=== PATIENT | male | born 1970 | race Caucasian/White ===

== ENCOUNTER 2017-04-18 13:41 | Emergency (ER) | payer SELFPAY ==
[~2017-04-18 13:41] MED LIST: CLIN1CAP5 PO; NAPR500 PO; PERC5TAB12 PO
[2017-04-18 13:42] VITALS: BP 148/85; PULSE 52; RESP 15; TEMP 98.3; O2SAT 98
--- NOTE | 2017-04-18 14:01 | PD ---
Physical Exam Time Seen by Provider: 13:59 Narrative 46 y/o male presents for evaluation of L inguinal pain associated with a hernia. Hernia for one year, became enlarged today while lifting blocks of concrete at work. Vital signs reviewed. Seen at triage desk. Awaiting bed placement. Data Data Last Documented VS Vital Signs Date Time Temp Pulse Resp B/P Pulse Ox O2 Delivery O2 Flow Rate FiO2 04/18/17 13:42 98.3 52 15 148/85 98 MDM Medical Record Reviewed: Yes Supervised Visit with RAFIQ: Nish William Apr 18, 2017 14:01
--- NOTE | 2017-04-18 16:36 | PD ---
HPI Chief Complaint: Lump, Cyst, Hernia Time Seen by Provider: 16:26 Travel History International Travel<30 days: No Contact w/Intl Traveler<30days: No Traveled to known affect area: No History of Present Illness HPI This is a 46-year-old male who presents to the emergency department having been lifting concrete blocks at work when his left inguinal hernia came out. He says it's protruding more than it usually does. He says it goes back in when he lays down but immediately comes back out when he stands up. He denies any associated fevers, chills, vomiting or constipation. He has a little bit of abdominal discomfort in the right lower abdomen. He's had this hernia for a year but it got worse today. He has no insurance. PFS Social History Alcohol Use: Yes (OCC) Tobacco Use: Yes (1 PPD) Substance Use: No Allergies-Medications (Allergen,Severity, Reaction): Coded Allergies: No Known Allergies (Verified , 04/18/17) Reported Meds & Prescriptions Reported Meds & Active Scripts Active Percocet 5-325 mg (Oxycodone/Acetaminophen) 1 Tab 1 Tab PO Q6H PRN Naprosyn (Naproxen) 500 Mg Tab 500 Mg PO Q12HR PRN Clindamycin Hcl (Clindamycin HCl) 150 Mg Cap 150 Mg PO Q6H 10 Days Review of Systems Except as stated in HPI: all other systems reviewed are Neg Physical Exam Narrative GENERAL:Well appearing, no acute distress SKIN: Focused skin assessment warm and dry. HEAD: Atraumatic. Normocephalic. EYES: Pupils equal and round. No injection or drainage. ENT: Moist mucous membranes NECK: Trachea midline. CARDIOVASCULAR: Regular rate and rhythm. No murmur appreciated. RESPIRATORY: Clear to auscultation. Breath sounds equal bilaterally. GASTROINTESTINAL: Abdomen soft, non-tender. Easily reducible hernia in the left inguinal canal with no evidence of incarceration MUSCULOSKELETAL: No obvious deformities. NEUROLOGICAL: Awake and alert. No obvious cranial nerve deficits. Moving all extremities. PSYCHIATRIC: Appropriate mood and affect; insight and judgment normal. Data Data Last Documented VS Vital Signs Date Time Temp Pulse Resp B/P Pulse Ox O2 Delivery O2 Flow Rate FiO2 04/18/17 13:42 98.3 52 15 148/85 98 MDM Medical Decision Making Medical Screen Exam Complete: Yes Emergency Medical Condition: Yes Interpretation(s) Afebrile, rate of cardiac, mild hypertension Differential Diagnosis Inguinal hernia, bowel obstruction, incarcerated hernia, strangulated hernia Narrative Course This is a 46-year-old male who presents to the emergency department with an increasingly symptomatic left inguinal hernia. It's easily reducible on exam. He has no evidence of bowel obstruction. Patient will be discharged home. He was given pain control, a prescription for hernia belt and a referral to general surgery and the [facility]. Diagnosis Primary Impression: Inguinal hernia Qualified Code: K40.91 - Unilateral recurrent inguinal hernia without obstruction or gangrene Referrals: [facility] Patient Instructions: General Instructions Additional Instructions: If you develop severe or worsening abdominal pain, if your hernia won't go back in, fever>100.4, persistent vomiting or inability to eat or drink return to the emergency department immediately. Follow up with a primary care physician and general surgeon as soon as possible. Med/Other Pt SpecificInfo: Prescription(s) given Scripts Hernia Support/Left/Med 1 Mis Mis #1 Ea .route As Directed Prov:Rosa Bailey MD 04/18/17 Tramadol 50 Mg Tab50 Mg PO Q6H PRN (PAIN) #10 TAB Prov:Rosa Bailey MD 04/18/17 Disposition: 01 DISCHARGE HOME Condition: Stable Rosa Bailey MD Apr 18, 2017 16:36
[2017-04-18] MEDS ORDERED: TRAM50TA PO (16:40)
[2017-04-18] MEDS ORDERED: [UNRECOGNIZED DRUG - OTHER] (16:40)
[2017-04-18 17:35] VITALS: BP 140/68
== END 2017-04-18 17:36 | disposition home or self-care (01) ==
LOC: NEPD 13:41
DX: K40.91 Unilateral inguinal hernia, without obstruction or gangrene, recurrent (principal)
CPT/HCPCS: 99283